=== PATIENT | male | born 1965 | race Caucasian/White ===

== ENCOUNTER 2017-01-14 13:17 | Inpatient (IN) | payer MEDICAID ==
[~2017-01-14] VITALS: Ht 185.4 cm; Wt 88.6 kg
[2017-01-14 14:02] LABS: BASOPHIL % 0.3 % (0-2); PLATELET COUNT 152 x10^3mcL (130-400); RED CELL DISTRIBUTION WIDTH 13.3 % (11.5-14.5)
[2017-01-14 14:20] LABS: CALCIUM 8.9 mg/dL (8.5-10.1); CARBON DIOXIDE 30.3 mmol/L (21-32); CHLORIDE SERUM 103 mmol/L (98-107); CREATININE SERUM 0.9 mg/dL (0.7-1.3); GFR1 > 60 mL/min; GLUCOSE SERUM 89 mg/dL (74-106); POTASSIUM SERUM 4.5 mmol/L (3.5-5.1); SODIUM SERUM 140 mmol/L (136-145)
[2017-01-14 14:25] LABS: ALBUMIN 3.9 g/dL (3.4-5.0); ALKALINE PHOSPHATASE 105 U/L (46-116); ALT/SGPT 30 U/L (16-63); AST/SGOT 15 U/L (15-37); BILIRUBIN TOTAL 0.3 mg/dL (0.20-1.00); CHOLESTEROL 165 mg/dL (<200); CHOLESTEROL/HDL RATIO 2.3; HDL CHOLESTEROL 72 mg/dL (40-60); LIPASE 271 IU/L (73-393); TOTAL PROTEIN, SERUM 6.9 g/dL (6.4-8.2); TRIGLYCERIDES 75 mg/dL (<150)
[2017-01-14 14:47] LABS: FREE T4 1.06 ng/dL (0.76-1.46); FREE THYROXINE INDEX 2.3 ug/dL (1.4-4.5); T4(THYROXINE) 6.6 ug/dL (4.7-13.3)
[2017-01-14 15:32] LABS: T3 TOTAL 1.04 ng/mL
[2017-01-14] MEDS ORDERED: KEPPRA1000 M1 PO (16:39)
[2017-01-14] MEDS ORDERED: DILANTIN100 MG PO (16:41)
[2017-01-14] MEDS ORDERED: OMEPRAZOLE40 M1 PO (16:42)
[2017-01-14 16:47] LABS: microscopic required? NO
[2017-01-14 17:10] LABS: UA SPECIFIC GRAVITY <=1.005 (1.005-1.035); urine erythrocyte NEGATIVE (NEGATIVE)
[2017-01-14 17:43] VITALS: BP 125/80
[2017-01-14 20:19] VITALS: BP 113/63
[2017-01-14 20:44] LABS: MAGNESIUM 2.1 mg/dL (1.8-2.4); PHOSPHOROUS 3.2 mg/dL (2.5-4.9)
[2017-01-14 21:21] VITALS: BP 103/58
[2017-01-14 23:00] VITALS: BP 103/58
[2017-01-15 02:48] LABS: AMPHETAMINE QUAL UR NONE DETECTED (NEG <=1000)
[2017-01-15 05:55] VITALS: BP 104/56
[2017-01-15 06:45] LABS: BASOPHIL % 0.4 % (0-2); PLATELET COUNT 130 x10^3mcL (130-400); RED CELL DISTRIBUTION WIDTH 13.1 % (11.5-14.5)
[2017-01-15 06:49] LABS: CALCIUM 8.3 mg/dL (8.5-10.1); CARBON DIOXIDE 25.3 mmol/L (21-32); CHLORIDE SERUM 106 mmol/L (98-107); CREATININE SERUM 0.8 mg/dL (0.7-1.3); GFR1 > 60 mL/min; GLUCOSE SERUM 91 mg/dL (74-106); POTASSIUM SERUM 4.6 mmol/L (3.5-5.1); SODIUM SERUM 139 mmol/L (136-145)
[2017-01-15 09:15] VITALS: BP 114/74
[2017-01-15 09:45] VITALS: BP 107/61
[2017-01-15 13:56] VITALS: BP 116/65
[2017-01-15 14:14] VITALS: Ht 185.4 cm; Wt 88.6 kg
[2017-01-15 17:21] VITALS: BP 108/61
[2017-01-16 05:43] VITALS: BP 98/60
[2017-01-16 06:33] LABS: CALCIUM 8.5 mg/dL (8.5-10.1); CARBON DIOXIDE 31.4 mmol/L (21-32); CHLORIDE SERUM 107 mmol/L (98-107); CREATININE SERUM 0.9 mg/dL (0.7-1.3); GFR1 > 60 mL/min; GLUCOSE SERUM 100 mg/dL (74-106); SODIUM SERUM 140 mmol/L (136-145)
[2017-01-16 06:39] LABS: BASOPHIL % 0.3 % (0-2); PLATELET COUNT 140 x10^3mcL (130-400); RED CELL DISTRIBUTION WIDTH 13.1 % (11.5-14.5)
[2017-01-16 10:13] VITALS: BP 96/54
[2017-01-16 10:48] VITALS: BP 96/54
== END 2017-01-16 13:45 | disposition home or self-care (01) | DRG 243 ==
LOC: ED 13:17 → DU 16:19
PROVIDERS: Family Medicine; Specialist; ADMIT Family Medicine
DX: K21.9 Gastro-esophageal reflux disease without esophagitis (principal); E87.3 Alkalosis; D72.819 Decreased white blood cell count, unspecified; G40.909 Epilepsy, unspecified, not intractable, without status epilepticus; Z68.25 Body mass index [BMI] 25.0-25.9, adult; Z86.711 Personal history of pulmonary embolism; Z56.0 Unemployment, unspecified
CPT/HCPCS: 36600; 83880; 84439; 85378; J7030; Q0092; Q9967